=== PATIENT | female | born 1970 | race Caucasian/White ===

== ENCOUNTER 2020-10-05 13:46 | Emergency (ER) | payer OTHER ==
[~2020-10-05] VITALS: Ht 167.6 cm; Wt 68.0 kg
[2020-10-05] MEDS ORDERED: ADULT LOW DOSE81 M1 (13:54)
[2020-10-05] MEDS ORDERED: MUCINEX600 MG (13:55)
[2020-10-05] MEDS ORDERED: ADVIL200 MG (13:55)
[2020-10-05] MEDS ORDERED: VITAMIN C500 M6 (13:55)
[2020-10-05] MEDS ORDERED: AZITHROMYCIN500 M2 (13:55)
[2020-10-05] MEDS ORDERED: LORADAMED10 MG (13:56)
== END 2020-10-05 18:36 | disposition home or self-care (01) ==
LOC: ER 13:46
DX: U07.1 COVID-19 (principal); R06.02 Shortness of breath

== ENCOUNTER 2020-10-09 08:54 | Outpatient (CLI) | payer OTHER ==
[~2020-10-09 08:54] MED LIST: ADULT LOW DOSE81 M1; ADVIL200 MG; AZITHROMYCIN500 M2; LORADAMED10 MG; MUCINEX600 MG; VITAMIN C500 M6
[2020-10-10] MEDS ORDERED: ACETAMINOPHEN650 M2 PO (00:21)
[2020-10-10] MEDS ORDERED: MEDROLPACK PO (00:21)
[2020-10-10] MEDS ORDERED: MELATONIN10 M2 PO (00:21)
[2020-10-10] MEDS ORDERED: IVERMECTIN3 MG PO (00:21)
[2020-10-10] MEDS ORDERED: MOXIFLOXACIN H400 MG PO (00:21)
[2020-10-10] MEDS ORDERED: COLCHICINE0.6 MG PO (00:21)
[2020-10-10] MEDS ORDERED: ZINC SULFATE220 M2 PO (00:27)
== END 2020-10-09 12:12 | disposition home or self-care (01) ==
LOC: ASH CLINIC 08:54
DX: Z23 Encounter for immunization (principal); U07.1 COVID-19

== ENCOUNTER 2020-10-09 12:12 | Emergency (ER) | payer OTHER ==
[~2020-10-09] VITALS: Ht 167.6 cm; Wt 77.1 kg
[2020-10-10] MEDS ORDERED: IVERMECTIN3 MG PO (00:21)
[2020-10-10] MEDS ORDERED: ACETAMINOPHEN650 M2 PO (00:21)
[2020-10-10] MEDS ORDERED: MEDROLPACK PO (00:21)
[2020-10-10] MEDS ORDERED: MELATONIN10 M2 PO (00:21)
[2020-10-10] MEDS ORDERED: COLCHICINE0.6 MG PO (00:21)
[2020-10-10] MEDS ORDERED: MOXIFLOXACIN H400 MG PO (00:21)
[2020-10-10] MEDS ORDERED: ZINC SULFATE220 M2 PO (00:27)
== END 2020-10-10 02:14 | disposition home or self-care (01) ==
LOC: ER 12:12
DX: U07.1 COVID-19 (principal); J12.82 Pneumonia due to coronavirus disease 2019

== ENCOUNTER 2021-05-19 11:59 | Emergency (ER) | payer OTHER ==
[~2021-05-19] VITALS: Ht 167.6 cm; Wt 70.3 kg
[~2021-05-19 11:59] MED LIST changes: +ACETAMINOPHEN650 M2 PO; +COLCHICINE0.6 MG PO; +IVERMECTIN3 MG PO; +MEDROLPACK PO; +MELATONIN10 M2 PO; +MOXIFLOXACIN H400 MG PO; +ZINC SULFATE220 M2 PO
[2021-05-19] MEDS ORDERED: NORFLEX100MG PO (16:09)
[2021-05-19] MEDS ORDERED: KETO10TA2 PO (16:09)
== END 2021-05-19 16:09 | disposition home or self-care (01) ==
LOC: ER 11:59
DX: M54.2 Cervicalgia (principal)

== ENCOUNTER 2024-05-04 08:24 | Emergency (ER) | payer OTHER ==
[~2024-05-04] VITALS: Ht 165.1 cm; Wt 72.6 kg
[~2024-05-04 08:24] MED LIST changes: +KETO10TA2 PO; +NORFLEX100MG PO
[2024-05-04] MEDS ORDERED: BUTALB/ACETAMINOPHEN/CAFFEINE 1 TAB TABLET PO ONE ×2 (09:15→09:23)
[2024-05-04 09:38] LABS: HEMATOCRIT 42.3 % (36.0-45.00); HEMOGLOBIN 14.5 g/dL (12.0-15.00); MEAN CELL VOLUME 91.5 fL (80.00-100.00); MEAN CORPUSCULAR HEMOGLOBIN 31.3 pg (27.00-32.0); MEAN CORPUSCULAR HGB CONC 34.2 g/dl (32.0-36.0); PLATELET COUNT 309 K/uL (150-450); RED BLOOD COUNT 4.63 M/uL (4.00-6.00); RED CELL DISTRIBUTION WIDTH 12.9 % (11.5-14.5)
[2024-05-04 09:57] LABS: CALCIUM 9.5 mg/dL (8.5-10.1); CREATININE SERUM 0.86 mg/dL (0.55-1.02); GFR 69.02; POTASSIUM 4.52 mEq/L (3.5-5.1)
[2024-05-04] MEDS ORDERED: GUAIFEN/DEXTROMETHORPHAN/PE 10 ML BLIST.PACK PO ONE (11:10)
[2024-05-04] MEDS ORDERED: GUAIFENESIN/DEXTROMETHORPHAN 10ML BLIST.PACK PO ONE (11:15)
== END 2024-05-04 11:14 | disposition home or self-care (01) ==
LOC: ER 08:26
PROVIDERS: Emergency Medicine
DX: B34.9 Viral infection, unspecified (principal); J40 Bronchitis, not specified as acute or chronic; J32.9 Chronic sinusitis, unspecified; R53.81 Other malaise; Z20.822 Contact with and (suspected) exposure to COVID-19

== ENCOUNTER 2025-07-02 18:48 | Emergency (ER) | payer OTHER ==
[~2025-07-02] VITALS: Ht 167.6 cm; Wt 77.1 kg
[2025-07-02] MEDS ORDERED: FAMOTIDINE/PF 20 MG/2 ML VIAL IV ONE (19:45)
[2025-07-02] MEDS ORDERED: 0.9 % SODIUM CHLORIDE 1,000 ML IV ONE (19:45)
[2025-07-02] MEDS ORDERED: KETOROLAC TROMETHAMINE 30 MG VIAL IV ONE (19:45)
[2025-07-02] MEDS ORDERED: ONDANSETRON HCL 2 MG/ML VIAL IV ONE (19:45)
[2025-07-02] MEDS ORDERED: KETOROLAC TROMETHAMINE 30 MG VIAL ONE (20:00)
[2025-07-02] MEDS ORDERED: ONDANSETRON HCL 2 MG/ML VIAL ONE (20:01)
[2025-07-02] MEDS ORDERED: FAMOTIDINE/PF 20 MG/2 ML VIAL ONE (20:01)
[2025-07-02 20:37] LABS: BASO % 0.4 % (0.1-1.2); EOS # 0.17 (0.04-0.54); EOS % 1.8 % (0.7-7.0); LYMPH # 3.20 (1.18-3.74); LYMPH % 34.8 % (19.3-53.1); MEAN PLATELET VOLUME 9.30 fl (9.4-12.4); MONO # 0.59 (0.24-0.82); MONO % 6.4 % (4.7-12.5); NEUT # 5.18 (1.56-6.13); NEUT % 56.5 % (34.0-71.1); RED CELL DISTRIBUTION WIDTH 12.6 % (11.6-14.4)
[2025-07-02 21:12] LABS: ALT/SGPT 46.0 U/L (12-78); AST/SGOT 22.0 U/L (15-37); BILIRUBIN TOTAL 0.27 mg/dL (0.3-1.2); BUN CREA RATIO 20.0 (7.0-25.0); CREATININE SERUM 1.06 mg/dL (0.55-1.02); GFR 54.02; GLOBULINA 4.1 G/DL (2.4-3.5); GLUCOSE FASTING 96.0 mg/dL (65-100); OSMOLALITY SERUM 284.0 MOSM/KG (275-295)
[2025-07-02 22:18] LABS: URINE APPEARANCE Clear; URINE BILIRRUBIN Negative (NEGATIVE); URINE BLOOD Negative; URINE COLOR Yellow; URINE GLUCOSE Negative (NEGATIVE); URINE KETONE Negative (NEGATIVE); URINE LEUKOCYTE Moderate; URINE NITRATE Negative; URINE PROTEIN Negative (NEGATIVE); URINE UROBILINOGEN 0.2 E.U./dl
[2025-07-02 22:21] LABS: URINE BACTERIA 1537.0 uL (0.0-1933); URINE EPITHELIAL CELLS 25.0 uL (0.0-38.8); URINE RBC 4.8 uL (0.0-20.8); URINE WBC 72.4 uL (0.0-23.2)
[2025-07-02 22:22] LABS: URINE CAST 0.14 uL (0.0-1.40)
[2025-07-02] MEDS ORDERED: DICLOFENAC SODI50 MG PO (23:34)
== END 2025-07-03 01:06 ==
LOC: ER 18:49
PROVIDERS: General Practice
DX: K63.89 Other specified diseases of intestine (principal); R10.A2 Flank pain, left side; N20.0 Calculus of kidney; K80.80 Other cholelithiasis without obstruction